=== PATIENT | female | born 2000 | race Caucasian/White ===

== ENCOUNTER 2023-02-26 16:43 | Emergency (ER) | payer OTHER ==
[~2023-02-26] VITALS: Ht 165.1 cm; Wt 104.3 kg
[2023-02-26 16:52] VITALS: BP 168/104
== END 2023-02-26 18:03 | disposition home or self-care (01) ==
LOC: ER 16:43
DX: M25.512 Pain in left shoulder (principal); F17.290 Nicotine dependence, other tobacco product, uncomplicated; Z91.048 Other nonmedicinal substance allergy status
CPT/HCPCS: 73030; 99283-25

== ENCOUNTER 2023-06-05 19:39 | Emergency (ER) | payer SELFPAY ==
[~2023-06-05] VITALS: Ht 165.1 cm; Wt 104.3 kg
[2023-06-05 20:10] VITALS: BP 155/97
[2023-06-05] MEDS ORDERED: CRUTCH4 XX (21:16)
== END 2023-06-05 21:25 | disposition home or self-care (01) ==
LOC: ER 19:39
DX: S90.02XA Contusion of left ankle, initial encounter (principal); W22.8XXA Striking against or struck by other objects, initial encounter; Z91.018 Allergy to other foods; F17.290 Nicotine dependence, other tobacco product, uncomplicated
CPT/HCPCS: 73610; 99283-25; A9270

== ENCOUNTER 2023-06-26 19:53 | Emergency (ER) | payer SELFPAY ==
[~2023-06-26] VITALS: Ht 165.1 cm; Wt 104.3 kg
[~2023-06-26 19:53] MED LIST: CRUTCH4 XX
[2023-06-26 20:43] LABS: BASOPHILS ABSOLUTE AUTO 0.08 K/mm3 (0.00-0.23); BASOPHILS PERCENT AUTO 1 % (0-2); EOSINOPHILS PERCENT AUTO 2 % (0-6); Hematocrit 43.2 % (33.0-51.0); Hemoglobin 14.7 g/dL (11.5-16.0); IMMATURE GRAN ABSOLUTE AUTO 0.04 K/mm3 (0.00-0.10); IMMATURE GRAN PERCENT AUTO 0 % (0-1); LYMPHOCYTES ABSOLUTE AUTO 3.73 K/mm3 (0.84-5.20); LYMPHOCYTES PERCENT AUTO 30 % (21-46); MONOCYTES ABSOLUTE AUTO 0.68 K/mm3 (0.16-1.47); MONOCYTES PERCENT AUTO 6 % (4-13); Mean Corpuscular HGB 28.6 pg (26.0-34.0); Mean Corpuscular Volume 84 fL (80-100); Mean Platelet Volume 9.1 fL (9.1-12.4); NEUTROPHILS ABSOLUTE AUTO 7.64 K/mm3 (1.96-9.15); NEUTROPHILS PERCENT AUTO 62 % (41-73); Platelet Count 375 K/mm3 (150-400); RDW Coefficient Variation 11.9 % (11.7-14.2); RDW Standard Deviation 36.2 fL (35.1-46.3); Red Blood Cell Count 5.14 M/mm3 (3.80-5.20); White Blood Cell Count 12.37 K/mm3 (4.00-11.30)
[2023-06-26 21:12] LABS: Albumin, Blood 4.1 g/dL (3.4-5.0); Bilirubin, Total 0.2 mg/dL (0.1-1.0); Bun/Creatinine Ratio 8.3 (12.0-20.0); Calcium, Blood 8.7 mg/dL (8.5-10.1); Creatinine, Blood 0.6 mg/dL (0.40-1.00); Globulin, Blood 4.2 g/dL (2.2-4.0); Potassium, Blood 3.9 mmol/L (3.5-5.5); Total Protein, Blood 8.3 g/dL (6.4-8.2)
[2023-06-27 00:01] LABS: Magnesium, Blood 2.3 mg/dL (1.6-2.4)
[2023-06-27 01:26] LABS: Source, Urine Clean Catch
[2023-06-27 01:37] LABS: Bilirubin, Urine Neg (Neg); Blood, Urine 1+ (Neg); Glucose Qualitative, Urine Neg (Neg); Ketones, Urine Neg (Neg); Leukocyte Esterase, Urine 2+ (Neg); Nitrite, Urine Neg (Neg); Protein, Urine 1+ (Neg); Specific Gravity, Urine 1.025 (1.003-1.022); Urobilinogen, Urine 1+ (Normal)
[2023-06-27 01:44] LABS: Color, Urine Yellow (P-Yellow)
[2023-06-27 01:45] LABS: Appearance, Urine Hazy (Clear)
[2023-06-27 02:00] VITALS: BP 121/100
[2023-06-27 02:03] LABS: Amorphous Light (0-Heavy); Bacteria Many /hpf; Mucus Heavy (0-Heavy); Squamous Epithelial Cells Mod /hpf (Few)
== END 2023-06-27 02:20 | disposition home or self-care (01) ==
LOC: ER 19:53
PROVIDERS: Student in an Organized Health Care Education/Training Program
DX: R00.2 Palpitations (principal); Z91.018 Allergy to other foods; F17.290 Nicotine dependence, other tobacco product, uncomplicated
CPT/HCPCS: 71045; 80053; 81001; 81025; 83735; 84484; 85025; 87086; 93005; 93010; 96361; 96374; 99284-25; J1885; J7030

== ENCOUNTER 2023-10-04 18:36 | Emergency (ER) | payer SELFPAY ==
[~2023-10-04] VITALS: Ht 165.1 cm; Wt 104.3 kg
[2023-10-04 19:03] VITALS: BP 147/112
[2023-10-04 19:58] LABS: Influenza A, PCR NEGATIVE (NEGATIVE); Influenza B, PCR NEGATIVE (NEGATIVE); Resp Syncytial Virus, PCR NEGATIVE (NEGATIVE); SARS-Cov-2 (COVID-19) PCR, MMC NEGATIVE (NEGATIVE)
== END 2023-10-04 21:27 | disposition left against medical advice (07) ==
LOC: ER 18:36
PROVIDERS: Student in an Organized Health Care Education/Training Program
DX: J06.9 Acute upper respiratory infection, unspecified (principal); F17.290 Nicotine dependence, other tobacco product, uncomplicated; Z20.822 Contact with and (suspected) exposure to COVID-19
CPT/HCPCS: 0241U